=== PATIENT | female | born 1990 | race Caucasian/White ===

== ENCOUNTER 2018-04-10 09:12 | Day surgery (SDC) | payer OTHER ==
[~2018-04-10] VITALS: Ht 147.3 cm; Wt 75.7 kg
[2018-04-10] MEDS ORDERED: LIDOCAINE 2% 1000 MG/50 ML VIAL INJ ONE (11:01)
[2018-04-10] MEDS ORDERED: MORPHINE SULFATE 4 MG/ML SYR IVP PRN (12:00)
== END 2018-04-10 13:10 | disposition home or self-care (01) ==
LOC: MDS 09:12 → MMU 09:21 → MDS 13:10
PROVIDERS: ATTEND Internal Medicine Gastroenterology
DX: K75.81 Nonalcoholic steatohepatitis (NASH) (principal); K74.0 Hepatic fibrosis; I10 Essential (primary) hypertension; E78.00 Pure hypercholesterolemia, unspecified; E66.9 Obesity, unspecified; Z68.34 Body mass index [BMI] 34.0-34.9, adult; Z98.890 Other specified postprocedural states
CPT/HCPCS: 47000; 76942; 88307; 88313; J2001; J2270; Q0092